=== PATIENT | male | born 1960 | race Caucasian/White ===

== ENCOUNTER 2024-08-03 17:25 | Inpatient (IN) | payer OTHER, SELFPAY ==
[2024-08-03] VITALS (11 sets, daily range): BP systolic 137–173; BP diastolic 75–101; BMI 23.6; BMI 23.3
[2024-08-03 15:53] LABS: % Basophils 0.6 % (0-2); % Eosinophils 1.2 % (0-6); % Immature Granulocytes 0.2 % (0-0.5); % Monocytes 7.5 % (1.7-9.3); % Neutrophils 72.5 % (42.2-75.2); Absolute Basophils 0.1 10^3/uL (0-0.2); Absolute Eosinophils 0.1 10^3/uL (0-0.7); Absolute Lymphocytes 1.5 10^3/uL (1.2-3.4); Absolute Monocytes 0.6 10^3/uL (0.1-0.6); Hematocrit 45.3 % (39.0-52.0); Hemoglobin 15.7 g/dL (13.0-18.0); Mean Corp Hgb Conc. 34.7 g/dL (33.0-37.0); Mean Corpuscular Hgb 31.2 pg (27.0-31.0); Mean Corpuscular Volume 90.1 fL (80.0-94.0); Mean Platelet Volume 9.7 fL (7.4-10.4); Nucleated Red Blood Cells % 0 % (-); Platelet Count 243 10^3/uL (130-400); Red Blood Cell Count 5.03 10^6/uL (4.70-6.10); Red Cell Dist. Width 12.1 % (11.5-14.5); White Blood Cell Count 8.2 10^3/uL (4.8-10.8)
[2024-08-03 16:02] LABS: INR 0.95
--- NOTE | 2024-08-03 16:02 | ED.GENMED ---
History of Present Illness
General
Chief Complaint: Chest Pain
Time Seen by Provider: 08/03/24 15:14
History of Present Illness
History of Present Illness:
64-year-old male with history of high cholesterol and anxiety presenting to the emergency department for midsternal chest tightness. Patient notes symptoms started after about 4 hours of shoveling in the yard. Reports a tightness that has since
resolved. Reports similar symptoms about a week ago, again after traveling. Denies any known cardiac history. Denies any difficulty breathing. Denies nausea, vomiting, abdominal pain. Does note that he feels very anxious. Denies fever. Does
note a chronic cough for the past 3 months. Denies smoking history. Denies additional acute medical complaints.
Past History
Past History
ED Past Medical History: Hypercholesterolemia and Psychiatric (Anxiety)
ED Past Surgical History: None
Social History
Tobacco: Non-smoker
Personal:
Living: with family
Phy Exam
Physical Exam
Physical Exam:
General: Well-appearing, no clinical signs of dehydration, nontoxic and in no acute distress
HEENT: protecting airway
Neck: appears supple
CV: Normal heart rate, regular rhythm
Resp: No accessory muscle use, no increased work of breathing, lungs clear to auscultation bilaterally
Abd: Soft and non-distended, no tenderness to palpation
Extremities: No deformities, no swelling
Neuro: alert, no focal neurologic deficit
: deferred
Rectal: deferred
Psych: Normal affect
Skin: Intact
Scores
Heart Score for Chest Pain Patients
STEMI patient?: Yes
History: Slightly or Non-Suspicious
ECG: Normal
Age: >45 - <65 years
Risk Factors: 1 or 2 Risk Factors
Troponin: </= Normal Limit
Heart Score for Chest Pain Patients: 2
Heart Score Risk: 2.5% MACE over next 6 weeks
Course
Orders/Labs/Results
Orders:
Orders
08/03/24 14:38
Electrocardiogram (*1) Urgent
Reason for Study: Chest Pain
EKG- Treatment ONCE
08/03/24 15:25
Electrocardiogram (*1) Urgent
Reason for Study: Chest Pain
08/03/24 15:37
CR Chest - 2 Views Urgent
Comment:
Reason For Exam: midsternal CP
08/03/24 15:41
Complete Blood Count/With Diff Urgent
Comprehensive Metabolic Panel Urgent
Prothrombin Time Urgent
Troponin I Urgent
08/03/24 16:54
Aspirin Chewable [Low Strength Aspirin] 324 mg PO NOW STA
08/03/24 16:55
PTT Urgent
Comment: Obtain baseline before beginning heparin infusion if not already collected
Heparin 4,000 units IV NOW STA
Heparin Protocol- PTT Orders As Directed
PTT per Heparin protocol: -Obtain CBC and baseline PTT - if not already collected.
-Obtain PTT 6 hours from start of infusion. Then, every 6 hours until 2 consecutive
PTT's are therapeutic. Then, PTT Daily.
-With each rate change, obtain PTT every 6 hours until 2 consecutive PTT's are
therapeutic. Then, PTT Daily.
Notify MD As Directed
Notify physician if: PTT is greater than or equal to 200.
08/03/24 16:56
Nitroglycerin Sublingual [Nitrostat (Sublingual)] 0.4 mg SL [id number] PRN
08/03/24 17:00
Heparin 51177 Units/250 ml 25,000 units in 250 ml IV PER PROTOCOL
Weight to be used for heparin protocol in kilograms (kg):: 70.4
Protocol:: Cardiac Tx/Acute Coronary
PTT Goal Range to be used:: PTT 73 to 111 seconds
Order type:: Initial
INITIAL Infusion Dose (UNITS/KG/hr) & then follow protocol:: 12 units/kg/hr
Infusion Dose in UNITS/hr & then follow protocol (UNITS/hr):: 850
INFUSION RATE in mL/hr & then follow protocol (mL/hr):: 8.5
PTT less than or equal to 64 seconds:: Increase rate by 200 units/hr (+ 2 mL/hr)
PTT 64.1 to 72.9 seconds:: Increase rate by 100 units/hr (+ 1 mL/hr)
PTT 73 to 111 seconds:: Target Range. No change in rate.
PTT 111.1 to 130.9 seconds:: Decrease rate by 100 units/hr (- 1 mL/hr)
PTT 131 to 199.9 seconds:: HOLD for 1 hr. Then decrease rate by 200 units/hr (- 2 mL/hr)
PTT greater than or equal to 200 seconds:: HOLD for 2 hrs & Notify Provider. Then decrease by 200 units/hr (-
2 mL/hr)
Lab follow-up:: Each change, PTT q6h until 2 consecutive are therapeutic. Then PTT
daily.
08/03/24 17:10
Admit/Transfer Patient As Directed
Co-Sign Provider:
Level of Care: Inpatient admission
Assign to:: IVU
Physician / Group: CBC
Diagnosis: NSTEMI
Reason for Hospitalization: Chest pain, NSTEMI
Expected length of stay greater than two midnights?: Yes
ELOS- Estimated Length of Stay in days: 3
I certify the patient meets the requirements for IP care: Yes
08/03/24 17:11
PRN Pain Medication Management As Directed
May give lesser potent ordered pain med per pt: Yes
preference::
Protocol:: Medication orders for pain may be administered in a
manner that supports deferring to patient preference
when the pt is:
- Requesting an ordered lesser potent pain medication.
Least to most potent pain medications are defined
as: acetaminophen < NSAID < tramadol < opioids
(morphine, oxycodone, hydromorphone).
- Requesting a lesser dose of the same medication IF
ORDERED.
- Requesting a less intrusive route of administration
if both routes are prescribed by the provider (PO <
IV).
08/03/24 17:12
Code Status As Directed
Resuscitation Status: Full Code
08/03/24 17:17
Metoprolol [Lopressor] 25 mg PO NOW STA
08/05/24 06:00
Complete Blood Count/No Diff Q2D
Comment: Notify MD if platelet count is <130,000 or decreases by 50% from baseline
08/07/24 06:00
Complete Blood Count/No Diff Q2D
Comment: Notify MD if platelet count is <130,000 or decreases by 50% from baseline
08/09/24 06:00
Complete Blood Count/No Diff Q2D
Comment: Notify MD if platelet count is <130,000 or decreases by 50% from baseline
08/11/24 06:00
Complete Blood Count/No Diff Q2D
Comment: Notify MD if platelet count is <130,000 or decreases by 50% from baseline
08/13/24 06:00
Complete Blood Count/No Diff Q2D
Comment: Notify MD if platelet count is <130,000 or decreases by 50% from baseline
08/15/24 06:00
Complete Blood Count/No Diff Q2D
Comment: Notify MD if platelet count is <130,000 or decreases by 50% from baseline
08/17/24 06:00
Complete Blood Count/No Diff Q2D
Comment: Notify MD if platelet count is <130,000 or decreases by 50% from baseline
08/19/24 06:00
Complete Blood Count/No Diff Q2D
Comment: Notify MD if platelet count is <130,000 or decreases by 50% from baseline
Abnormal Lab Results
08/03/24
15:41
MCH 31.2 H pg
(27.0-31.0)
Lymphocytes % 18.0 L %
(20.5-51.1)
Troponin I 0.370 H* ng/ml
08/03/24 15:41
08/03/24 15:41
Vital Signs
Initial and Last Documented VS:
Initial Vital Signs
Temp Pulse Resp BP Pulse Ox
98.3 F 94 17 173/101 99
08/03/24 14:42 08/03/24 14:42 08/03/24 14:42 08/03/24 14:42 08/03/24 14:42
Last Documented Vital Signs
Temp Pulse Resp BP Pulse Ox
98.3 F 78 15 142/87 97
08/03/24 14:42 08/03/24 16:23 08/03/24 16:23 08/03/24 16:23 08/03/24 15:45
MDM/Problems Addressed
MDM/Problems Addressed:
64-year-old male with history of anxiety presenting for midsternal chest tightness after shoveling. Vital signs on arrival are significant for high blood pressure.
On exam, patient resting comfortably, no acute distress or discomfort. EKG obtained on patient's arrival, sinus rhythm without acute evidence of ischemia. Patients story is relatively concerning, starting after shoveling, however notes that he was
shoveling for about 4 hours before symptoms had started. Then he felt very fatigued. Could be overuse injury as well. Patient relatively low risk for ACS, currently chest pain-free, however given onset with exertion will plan for laboratory
analysis including troponin and chest x-ray imaging. Notes chronic cough for the past 3 months. Will continue to closely monitor.
16:50 - Patient's initial troponin is elevated. Discussed with cardiology. Aspirin administered. Cardiology to see. Patient updated
17:15 -cardiology bedside. Plan for admission under cardiology service for catheterization tomorrow
*EKG
Interpreted by ED Provider?: Yes
EKG Intrepretation Date: 08/03/24
EKG Intrepretation Time: 16:21
Interpretation: normal
Heart Rate: 91
Rate: normal
Rhythm: sinus
[place]: normal axis
Interval: normal interval
QRS Pattern: normal QRS
Ischemia: T-wave inversion
*Critical Care Note
Total Time (30-74mins, 75-104mins- exclusive of procedures): 36
comment:
The high probability of a clinically significant, sudden or life threatening deterioration of the cardiovascular/NSTEMI system(s) required my full and direct attention, intervention and personal management. The aggregate critical care time was 36
minutes. This time is in addition to time spent performing reported procedures but includes the following:
[x] Data Review and interpretation
[x] Patient assessment and monitoring of vital signs
[x] Documentation
[x] Medication orders and management
ED Attending Note
-
Portions of this chart may have been created with voice recognition software.� Occasional wrong word or��sound alike� substitutions may have occurred due to the inherent limitations of voice recognition software.
Discharge Plan
Departure
Date of Disposition: 08/03/24
Time of Disposition: 17:18
Presentation/result/management discussed w/ accepting MD/DO: cardiology
Patient with high blood pressure during this ER visit?: No
Condition: Fair
Prescriptions:
No Action
zinc 15 MG tablet
30 mg PO DAILY
clonazepam 1 MG tablet
1 mg PO BIDPRN PRN (Reason: anxiety)
magnesium hydroxide [Dulcolax (magnesium hydroxide)] 400 MG/5 ML suspension
400 mg PO PRN PRN (Reason: constipation)
ascorbic acid (vitamin C) [Vitamin C] 500 MG tablet
1,000 mg PO DAILY
desvenlafaxine succinate [Pristiq] 50 MG tablet extended release 24 hr
50 mg PO DAILY
cholecalciferol (vitamin D3) 2,000 UNITS tablet
2,000 units PO DAILY
Interventions
Interventions:
*Risk Screen - Suicide Last Done: 08/03/24 14:43
*General Assessment Last Done: 08/03/24 14:43
*Neglect/Abuse Screening Last Done: 08/03/24 14:43
*ED- Fall Risk Assessment Last Done: 08/03/24 15:25
*ED COVID-19 Vaccine History Last Done: 08/03/24 14:43
ED- Cardiac Assessment Last Done: 08/03/24 15:25
Discharge Date and Time
Print Language: WOLOF
[2024-08-03 16:16] LABS: ALT (SGPT) 22 U/L (0-50); AST (SGOT) 27 U/L (17-59); Albumin 4.7 g/dl (3.5-5.0); Alkaline Phosphatase 64 U/L (38-126); Blood Urea Nitrogen 20 mg/dl (9-20); Calcium 9.8 mg/dl (8.4-10.2); Carbon Dioxide 27 mmol/L (22-30); Chloride 106 mmol/L (98-107); Estimated Creatinine Clearance 67 ml/min; Glucose 97 mg/dl (70-99); Potassium 4.1 mmol/L (3.5-5.1); Sodium 140 mmol/L (135-145); Total Bilirubin 0.7 mg/dl (0.2-1.3); Total Protein 7.7 g/dl (6.3-8.2); eGFR > 60.00
--- NOTE | 2024-08-03 17:14 | HPS.HSE ---
Family Physician
-
Family Physician: None
Chief Complaint
-
Chest pain
History of Present Illness
64-year-old gentleman with past medical history of untreated hyperlipidemia due to statin intolerance�'I have tried them all' who presented for evaluation of chest tightness. Last week and when shoveling multiple for several hours he began to have
sudden onset mid substernal chest tightness with an associated fatigue. He stopped and rest for 10 to 15 minutes and it resolved. He does report at that time he went to urgent care and was referred to the ER but instead he went home. He did not
exercise throughout the week because he was a bit nervous. He tried to once again shoveling mulch and had recurrent symptoms prompting him to present to the emergency room for care.
Medical History
Past Medical History
Past Medical History: Reports Hypercholesterolemia (Untreated), Psychiatric (Anxiety) and Other (Reports statin intolerance)
Past Surgical History: Reports None
Social History
Tobacco: Non-smoker
Personal:
Living: With Family
Employment: Retired
Family History
Family History: Early CAD (None) and CAD (None)
Allergies / Home Medications
Allergies reflects when Allergies were last updated in [facility].
Home Medications with original date entered in [facility]
Allergy/Medication List:
Denies taking any medications
Review of Systems
-
A 12 point ROS was completed and negative except as noted: Yes
Respiratory: Reports Cough (dry)
Physical Exam
Vital Signs
Vital Signs
Temp Pulse Resp BP Pulse Ox
98.3 F 78 15 142/87 97
08/03/24 14:42 08/03/24 16:23 08/03/24 16:23 08/03/24 16:23 08/03/24 15:45
Physical Exam
General: Well Developed, Well Nourished and No Apparent Distress
HEENT: NormoCephalic
Respiratory: Clear; No Wheezes, Rales or Rhonchi
Cardiac: S1/S2; No Regular Rhythm, Irregular Rhythm, Murmur, Rub or Gallop
GI: Soft, Non Tender and Non Distended
Musculoskeletal: No No Clubbing or No Cyanosis
Neuro: AO x 3
Laboratory Results
-
08/03/24 15:41
08/03/24 15:
Laboratory Results
PT 13.0 Sec (11.4-14.6) 08/03/24 15:
INR 0.95 08/03/24 15:
Total Bilirubin 0.7 mg/dl (0.2-1.3) 08/03/24 15:
AST 27 U/L (17-59) 08/03/24 15:
ALT 22 U/L (0-50) 08/03/24 15:
Alkaline Phosphatase 64 U/L (38-126) 08/03/24 15:41
Troponin I 0.370 ng/ml H* 08/03/24 15:41
Data Reviewed
-
Diagnostic Radiology: Image Personally Visualized and interpreted (No acute cardiopulmonary process. On my review)
Medical Tests (Nuc Med, Echo, EKG etc): Image Personally Visualized and interpreted (Sinus rhythm, PVC, RSR prime with TWI V1-V4 )
Impression/Plan
-
64-year-old male with hyperlipidemia that is untreated who does not seek care from biomedical engineering professor presented with recurrent chest pain with exertion when shoveling mulch. Had a similar episode 1 week ago and did not go to the emergency room
as recommended by urgent care. Currently chest pain-free.
NSTEMI:
-This represents a threat to life.
-start asa,heparin gtt
-refuses statin
-start bb
-serial trops and ecgs
-currently cp, can start nitro gtt if needed
-check lipid panel
-npo for cath
-echo
HLD: update fasting lipid panel. Discuss zetia and pcsk9 inhibitor once results
Anxiety: chronic
[2024-08-03] MEDS: LOPRESSOR 25 MG PO (17:30)
[2024-08-03] MEDS: LOW STRENGTH ASPIRIN 324 MG PO (17:30)
[2024-08-03] MEDS: HEPARIN 4000 UNITS IV (17:37)
[2024-08-03] MEDS: HEPARIN 25000 UNITS/250 ML IV (17:41)
[2024-08-03 18:12] LABS: APTT 28.6 Sec (23.4-35.0)
--- NOTE | 2024-08-03 22:11 | PTCARENOTE ---
Received pt from ED RN @ approx 1940 to room 2244. Pt AAOx3 and ambulating in room from stretcher. Tele monitor shows SR with HR in the 70's. Heparin gtt infusing @ 850 units/hr. pt oriented to room and educated on NPO status after midnight. Pt
denies any chest pain or SOB at this time. Educated pt to call staff nurse if chest pain/symptoms reoccurs. Call garcia within reach.
[2024-08-04] VITALS (19 sets, daily range): BP systolic 115–146; BP diastolic 68–101
[2024-08-04 00:18] LABS: APTT 51.1 Sec (23.4-35.0)
--- NOTE | 2024-08-04 04:56 | DOWNTIME ---
Addendum entered and electronically signed by Thony Peterson RN 08/04/24 14:24:
Correction: Downtime was 08/04/2024 from 0100 to 08/04/2024 at 0415
Original Note:
There was a [employer] Client [employer]er Downtime on 08/03/2024 from 0100 to 08/04/2024 at 0415. Downtime documentation of patient's care, including medication administrations, has been reconciled in the electronic record per guidelines. Refer to the
patient's paper chart under the miscellaneous tab to see printed paper medication records and downtime forms.
[2024-08-04 06:48] LABS: Hematocrit 47.4 % (39.0-52.0); Hemoglobin 16.3 g/dL (13.0-18.0); Mean Corp Hgb Conc. 34.4 g/dL (33.0-37.0); Mean Corpuscular Hgb 31.5 pg (27.0-31.0); Mean Corpuscular Volume 91.7 fL (80.0-94.0); Mean Platelet Volume 9.4 fL (7.4-10.4); Platelet Count 265 10^3/uL (130-400); Red Blood Cell Count 5.17 10^6/uL (4.70-6.10); Red Cell Dist. Width 12.6 % (11.5-14.5); White Blood Cell Count 6.8 10^3/uL (4.8-10.8)
[2024-08-04 07:15] LABS: Blood Urea Nitrogen 18 mg/dl (9-20); Calcium 9.8 mg/dl (8.4-10.2); Carbon Dioxide 25 mmol/L (22-30); Chloride 108 mmol/L (98-107); Estimated Creatinine Clearance 74 ml/min; Glucose 105 mg/dl (70-99); HDL Cholesterol 63 mg/dl; Potassium 4.4 mmol/L (3.5-5.1); Sodium 142 mmol/L (135-145); Triglyceride 88 mg/dl (10-149); Very Low Density Lipoprotein 17 mg/dl (0-30); eGFR > 60.00
[2024-08-04 07:25] LABS: LDL Cholesterol, Calculated 284 mg/dl; Total Cholesterol 364 mg/dl (50-199)
--- NOTE | 2024-08-04 08:19 | PTCARENOTE ---
Resting in bed with IV heparin infusing at 1150 units/hr, NPO for the catheter finisher and inspector today, denies any chest pain or sob, SR on the monitor.
[2024-08-04] MEDS: LOPRESSOR 25 MG PO ×2 (08:36→20:52)
[2024-08-04] MEDS: ASPIR LOW (ENTERIC COATED) 81 MG PO (08:36)
[2024-08-04] MEDS: FLUSH (NSS) 1 FLUSH IV ×3 (08:36→20:54)
[2024-08-04 09:52] LABS: Glycohemoglobin (HgbA1c) 5.6 % (4.0-5.6)
--- NOTE | 2024-08-04 09:57 | CM ---
Addendum entered by Anel Taveras 08/04/24 15:15:
Met with Mr. Goldsmith to review co-pay information. He is agreeable to the co-pay of $40.00 for 3 month supply.
Addendum entered by Anel Taveras 08/04/24 15:02:
Received consult to check cost of Brilinta 90 mg po bid. Telephone call to [employer],([phone]) to check on co-pay. His co-pay would be $19.35 for a month and $40.00 for 90 days supply. Telephone call to [facility] to check if they have
Brilinta 90 mg in stock. They do not have it in stock but can get it there tomorrow if script received by 6:00 p.m. N.P to send script today.
Addendum entered by Anel Taveras 08/04/24 15:01:
Received consult for cost of Brilinta 90 mg po bid. Telephone call to his insurance, ((
Original Note:
Reviewed chart. Met with Mr. Goldsmith to review discharge plans. He states prior to admission he resides with his spouse in a one story william with one step to enter. He states prior to admission he was independent with ambulation and adls. He states
he does not have any DME in the home. He states he has a prescription plan and uses [facility]. Medical work-up in progress. The discharge plan is to return home with his spouse when medically stable.
--- NOTE | 2024-08-04 13:31 | PTCARENOTE ---
Patient taken to cardiac microbiology lab analyst.
--- NOTE | 2024-08-04 13:34 | W.PN.CD ---
Today's Communication / Plan
-
Cardiac catheterization today.
Impression / Plan
-
Impression/Plan: 64 y/o male with untreated hyperlipidemia due to statin intolerance admitted with NSTEMI.
#NSTEMI
-Acute, threat to life.
-Troponin peaked at 1.96.
-TTE shows normal systolic function, no valvulopathy.
-Continue metoprolol, heparin gtt, aspirin.
-Cardiac catheterization today to clarify coronary anatomy.
#HLD/Statin Intolerance
-Chronic, uncontrolled.
-Total cholesterol = 364, LDL = 284, HDL = 63, Triglycerides = 88.
-Intolerant of statins.
-He will need PCSK9i at discharge. Case management consult.
#PPx
-SCD's for DVT/VTE.
-No role for PPI.
#Dispo
-IVU status.
-Full code.
-Cath today.
Subjective/Interval History:
No acute events.
BP is marginally uncontrolled.
DATA:
TTE, 08/04/2024:
CONCLUSIONS
Normal biventricular size and systolic function without regional wall motion
abnormality.
No significant valvular disease.
No prior study available for comparison.
Physical Exam
Vital Signs/Labs
Vital Signs
Temp Pulse Resp BP Pulse Ox
36.8 C 66 16 133/82 96
08/04/24 11:10 08/04/24 11:10 08/04/24 11:10 08/04/24 11:10 08/04/24 11:10
08/03/24 08/04/24 08/05/24
11:59 11:59 11:59
Actual Weight 69.4 kg
08/04/24 06:37
08/04/24 06:37
PT 13.0 Sec (11.4-14.6) 08/03/24 15:41
INR 0.95 08/03/24 15:41
APTT Cancelled 08/04/24 13:10
Triglycerides 88 mg/dl (10-149) 08/04/24 06:37
LDL Cholesterol, Calc 284 mg/dl 08/04/24 06:37
VLDL Cholesterol, Calc 17 mg/dl (0-30) 08/04/24 06:37
HDL Cholesterol 63 mg/dl 08/04/24 06:37
LAB Results
08/03/24 08/03/24 08/03/24
15:41 20:20 23:53
Troponin I 0.370 H* 1.530 H* D 1.960 H* D
08/04/24 08/04/24
01:41 06:37
Troponin I Cancelled 1.520 H*
Physical Exam
Constitutional: No acute distress and Comfortable
EENT: Anicteric and Moist mucous membranes
Cardiovascular: Rhythm & rate is regular, Pedal edema is absent, JVD pressure is normal, S1S2 is normal and Murmur/rub/gallop absent
Respiratory: Respiratory effort normal, Lungs clear to auscul., Wheeze Absent, Crackles Absent and Rhonchi Absent
GI: Soft, Distention absent, Flat, Non tender and Normal bowel sounds
Neuro/Psych: AO x 3
Data Reviewed
-
Date of Service: August 04, 2024
Medical Decision Making: Reviewed Test Results, Independent Historian Assessment and Test Interpretation
EKG: Tracing Personally Visualized and interpreted and Report Reviewed by me
Echo: Report Reviewed by me
X-Ray/CT/US/MRI/NUC/PET: Image Personally Visualized and interpreted and Report Reviewed by me
Labs: Labs Reviewed by me
Old Records: Reviewed
[2024-08-04 14:11] LABS: ACT-LR - POC 374 Seconds (116-155)
--- NOTE | 2024-08-04 15:02 | PTCARENOTE ---
Patient returned from the labor relations supervisor after PCI to the mid LAD via R radial artery. Radial band in place on the right wrist, with pulse ox of 98%, no signs of bleeding or hematoma noted. Patient denies any chest pain, appears relieved that procedure is
finished and states he 'feels great'. Monitoring VS, call garcia in reach, patient ordering a meal, post EKG completed.
--- NOTE | 2024-08-04 16:48 | ITS.CL.ANGIO ---
[facility] [employer] - Angioplasty
Angioplasty
Procedure Report:
CARDIAC CATHETERIZATION REPORT
Date of Procedure: 08/04/2024
Referring: Cas Uribe M.D.
INDICATION: Non-ST elevation myocardial infarction.
PROCEDURE:
1. Left heart catheterization.
2. Coronary angiography.
3. Successful IVUS guided PCI of the mid LAD.
A total of 54 minutes of procedural/moderate sedation was utilized. An independent medical billing specialist was present to assist with and help manage the patient's level of consciousness and physiologic status.
ACCESS:
1. 6 [place] right radial artery using a modified Seldinger technique.
CATHETERS:
1. 5 [place] JR4.
2. 5 [place] JL 3.5.
3. 6 [place] EBU 4.0 guiding catheter.
HEMODYNAMIC DATA
Weight (kg): 69.4
AO (s/d/x, mmHg): 128/72/94
LV (s/x mmHg): 128/12
LEFT VENTRICULOGRAPHY: Not performed.
CORONARY ANGIOGRAPHY
Dominance: Right.
Left Main: Normal size, bifurcating vessel. There is no coronary artery disease.
LAD: Normal size vessel giving rise to 3 diagonals. There is a hazy, 80% lesion spanning the entire mid LAD, immediately distal to the first diagonal with an additional 70% lesion immediately distal to the second diagonal.
Ramus: Congenitally absent.
Circumflex: Large size, nondominant vessel that is essentially a single large obtuse marginal. There are minor luminal irregularities.
RCA: Normal size, dominant vessel with a significant posterolateral arcade. There is a 30-40% lesion in the proximal vessel.
INTERVENTION(S)
1. Intravascular ultrasound.
2. Successful PCI of the 80% and 70% mid LAD lesions (Medtronic G[place] 3.5 x 38 BOZENA, postdilated with a 3.5 NC balloon throughout and a 4.0 x 15 NC balloon in the proximal margin) with reduction in stenosis to 0%, maintaining JOLEEN-3 flow.
Narrative:
The decision was made to proceed with percutaneous coronary intervention. The diagnostic catheter was removed over a wire and a 6Fr EBU 4.0 guiding catheter was advanced to the aortic root and seated in the left main coronary artery. Additional
heparin was given and a Power Turn Flex wire was advanced into the distal LAD. The tandem 80% mid LAD and 70% mid LAD lesions were predilated with a 2.0 x 12 semi-compliant balloon to 12 rock.
The decision was made to perform intracoronary imaging. Nitroglycerin 150 mcg was given intracoronary. An IVUS catheter was advanced through the guiding catheter and into the ostium of the artery. Ring down was performed once the imaging crystal
was no longer inside of the guiding catheter. The IVUS catheter was advanced into the mid LAD, beyond the 70% lesion. Intravascular ultrasound was performed in a retrograde fashion using a slow pullback. Intracoronary imaging demonstrated severe,
atherosclerotic disease within the mid LAD without significant calcification. Vessel measurements were obtained.
The IVUS catheter was removed and a Medtronic [place] 3.5 x 38 drug-eluting stent was advanced. The stent was deployed at 12 atmospheres. The stent balloon was removed. A 3.5 x 20 noncompliant balloon was advanced into the stent and the stent
was postdilated to 15 atmospheres in the distal aspect and 16 rock in the proximal margin. The noncompliant balloon was withdrawn and a 4.0 x 15 noncompliant balloon was advanced. The proximal margin of the stent was postdilated to 12 rock. The
noncompliant balloon was withdrawn.
IVUS was repeated, demonstrating excellent stent expansion and apposition throughout the entire stented segment. Nitroglycerin 100 mcg intracoronary was given. The IVUS catheter was withdrawn.
Angiography was performed in orthogonal views, confirming good stent expansion and an excellent angiographic result. The coronary wire was withdrawn and the guide was disengaged from the artery. The catheter was removed over a standard J-wire.
Closure Device: Vascular band.
Radiation (mGy): 581.03
DAP (cm2.Gy): 47.9892
Fluoroscopy time (minutes): 11.6
CONCLUSIONS
1. Right dominant circulation with a 30-40% lesion in the proximal RCA and a culprit, 80% lesion spanning the entire mid LAD, followed by a 70% lesion in the mid LAD after the second diagonal, status post successful IVUS guided PCI (Medtronic [place] 3.5 x 38 BOZENA, postdilated with a 3.5 NC balloon throughout and a 4.0 x 15 NC balloon in the proximal margin) with reduction in stenosis to 0%, maintaining JOLEEN-3 flow.
2. Normal filling pressures (LVEDP = 12 mmHg at 69.4 kg).
RECOMMENDATIONS:
1. Expectant management after cardiac catheterization via right radial approach.
2. Limited weight bearing on the right wrist for one week.
3. Dual antiplatelet therapy with aspirin and ticagrelor for at least 12 months, followed by aspirin indefinitely.
4. OMT/GDMT as hemodynamics will tolerate.
5. Aggressive secondary prevention. Patient has a history of statin intolerance and may benefit from PCSK9 inhibitor initiation at discharge.
6. Transthoracic echocardiogram shows normal LV function.
7. Referral to cardiac rehab.
Copy to: Cas Uribe M.D., Duane Sher D.O.
Rogerio Sheridan DO, FACC, FACP
--- NOTE | 2024-08-04 17:00 | PTCARENOTE ---
Assumed care of pt, monitor showing SR. Right radial band intact, no bleeding, no hematoma noted. +CMS to fingers. Ambulatory in room, instructed on activity restrictions. Call garcia in reach.
--- NOTE | 2024-08-04 18:55 | PTCARENOTE ---
Pt declined taking lipitor this evening d/t intolerance to statins, Dr. Sheridan made aware.
[2024-08-04] MEDS: BRILINTA 90 MG PO (20:52)
--- NOTE | 2024-08-04 21:35 | PTCARENOTE ---
Received pt at change of shift resting in bed. SR on the monitor, HR 60-70's. pt denies any chest pain or SOB. Right radial site C.D.I. no bleeding or hematoma noted at this time. Educated pt on activity restrictions. pt ambulating in room ad lorene.
Call garcia within reach.
[2024-08-05 04:33] VITALS: BP 135/90
[2024-08-05 04:58] LABS: Hematocrit 44.8 % (39.0-52.0); Hemoglobin 15.4 g/dL (13.0-18.0); Mean Corp Hgb Conc. 34.4 g/dL (33.0-37.0); Mean Corpuscular Hgb 31.8 pg (27.0-31.0); Mean Corpuscular Volume 92.4 fL (80.0-94.0); Mean Platelet Volume 9.8 fL (7.4-10.4); Platelet Count 246 10^3/uL (130-400); Red Blood Cell Count 4.85 10^6/uL (4.70-6.10); Red Cell Dist. Width 12.5 % (11.5-14.5)
[2024-08-05 05:20] LABS: Blood Urea Nitrogen 18 mg/dl (9-20); Calcium 9.5 mg/dl (8.4-10.2); Carbon Dioxide 23 mmol/L (22-30); Chloride 110 mmol/L (98-107); Estimated Creatinine Clearance 74 ml/min; Glucose 108 mg/dl (70-99); Potassium 4.4 mmol/L (3.5-5.1); Sodium 139 mmol/L (135-145); eGFR > 60.00
[2024-08-05 07:43] VITALS: BP 127/82
[2024-08-05] MEDS: BRILINTA 90 MG PO (08:23)
[2024-08-05] MEDS: ASPIR LOW (ENTERIC COATED) 81 MG PO (08:24)
[2024-08-05] MEDS: TOPROL XL 25 MG PO (08:24)
[2024-08-05] MEDS: COZAAR 25 MG PO (08:25)
[2024-08-05] MEDS: FLUSH (NSS) 1 FLUSH IV (08:26)
--- NOTE | 2024-08-05 08:37 | PTCARENOTE ---
Patient received oob and ambulating in the room this morning. Denies any chest pain or sob. Right wrist dressing is dry and intact with a strong radial pulse and no signs of hematoma. Patient is worried about inability to tolerate statins and would
like to know more about alternatives. Encouraged to be oob and ambulate in the halls.
--- NOTE | 2024-08-05 09:10 | W.PN.CD ---
Today's Communication / Plan
-
Start ezetimibe 10 mg daily.
Case management consult for evolocumab 140 mg q14 days as an outpatient.
Discharge planning, likely today.
Impression / Plan
-
Impression/Plan: 64 y/o male with untreated hyperlipidemia due to statin intolerance admitted with NSTEMI.
#NSTEMI
-Acute, threat to life.
-Troponin peaked at 1.96.
-TTE shows normal systolic function, no valvulopathy.
-Continue metoprolol, heparin gtt, aspirin.
-Cardiac catheterization showed culprit 80% mLAD (hazy), s/p IVUS guided PCI ([employer]tronic Gagan [place] 3.5 x 38 BOZENA, post dilated with a 3.5 NCB throughout, 4.0 NCB in the proximal margin).
-DAPT with aspirin and ticagrelor for at least 12 months, followed by aspirin indefinitely.
-Tolerating metoprolol.
-Intolerant of statins.
#HLD/Statin Intolerance
-Chronic, uncontrolled.
-Total cholesterol = 364, LDL = 284, HDL = 63, Triglycerides = 88.
-Intolerant of statins.
-Start ezetimibe. Goal LDL < 55.
-He will need PCSK9i at discharge. Case management consult for evolocumab 140 mg q14 days.
#PPx
-SCD's for DVT/VTE.
-No role for PPI.
#Dispo
-IVU status.
-Full code.
-Likely discharge this afternoon.
Subjective/Interval History:
Cath showed culprit mid-LAD lesion (80% and hazy), s/p PCI.
Tolerated procedure well.
No events overnight.
No subjective complaints.
DATA:
TTE, 08/04/2024:
CONCLUSIONS
Normal biventricular size and systolic function without regional wall motion
abnormality.
No significant valvular disease.
No prior study available for comparison.
Cardiac Catheterization/PCI, 08/04/2024:
CONCLUSIONS
1. Right dominant circulation with a 30-40% lesion in the proximal RCA and a culprit, 80% lesion spanning the entire mid LAD, followed by a 70% lesion in the mid LAD after the second diagonal, status post successful IVUS guided PCI ([employer]tronic Gagan
[place] 3.5 x 38 BOZENA, postdilated with a 3.5 NC balloon throughout and a 4.0 x 15 NC balloon in the proximal margin) with reduction in stenosis to 0%, maintaining JOLEEN-3 flow.
2. Normal filling pressures (LVEDP = 12 mmHg at 69.4 kg).
Physical Exam
Vital Signs/Labs
Vital Signs
Temp Pulse Resp BP Pulse Ox
36.6 C 58 16 127/82 98
08/05/24 07:43 08/05/24 07:43 08/05/24 07:43 08/05/24 07:43 08/05/24 07:43
08/03/24 08/04/24 08/05/24
11:59 11:59 11:59
Actual Weight 69.4 kg
08/05/24 04:45
08/05/24 04:45
PT 13.0 Sec (11.4-14.6) 08/03/24 15:41
INR 0.95 08/03/24 15:41
APTT Cancelled 08/04/24 13:10
Triglycerides 88 mg/dl (10-149) 08/04/24 06:37
LDL Cholesterol, Calc 284 mg/dl 08/04/24 06:37
VLDL Cholesterol, Calc 17 mg/dl (0-30) 08/04/24 06:37
HDL Cholesterol 63 mg/dl 08/04/24 06:37
LAB Results
08/03/24 08/03/24 08/03/24
15:41 20:20 23:53
Troponin I 0.370 H* 1.530 H* D 1.960 H* D
08/04/24 08/04/24
01:41 06:37
Troponin I Cancelled 1.520 H*
Physical Exam
Constitutional: No acute distress and Comfortable
EENT: Anicteric and Moist mucous membranes
Cardiovascular: Rhythm & rate is regular, Pedal edema is absent, JVD pressure is normal, S1S2 is normal and Murmur/rub/gallop absent
Respiratory: Respiratory effort normal, Lungs clear to auscul., Wheeze Absent, Crackles Absent and Rhonchi Absent
GI: Soft, Distention absent, Flat, Non tender and Normal bowel sounds
Neuro/Psych: AO x 3
Other: Cath Site (Right radial access site is C/D/I.)
Data Reviewed
-
Date of Service: August 05, 2024
Medical Decision Making: Reviewed Test Results, Independent Historian Assessment, Test Interpretation and Review of Case with other Provider
EKG: Tracing Personally Visualized and interpreted and Report Reviewed by me
Echo: Tracing Personally Visualized and interpreted and Report Reviewed by me
X-Ray/CT/US/MRI/NUC/PET: Image Personally Visualized and interpreted and Report Reviewed by me
Medical Tests (PFT, Pathology etc): Image Personally Visualized and interpreted and Report Reviewed by me
Labs: Labs Reviewed by me
Old Records: Reviewed
[2024-08-05] MEDS: ZETIA 10 MG PO (09:46)
[2024-08-05 11:12] VITALS: BP 151/83
--- NOTE | 2024-08-05 11:12 | CM ---
constance keys with pts perscript plan- his coapy is $20 it is the prefered med but rrquires a prior auth- [phone]. Dr Sheridan aware
--- NOTE | 2024-08-05 13:58 | PTCARENOTE ---
Reviewed discharge instructions including new medications and follow up appointments with the patient and he states his understanding. Patient plans on having his TAMIKA who is a nurse assist him with the injection of repatha and I gave him a handout
with the instructions and injection technique. Patient discharged home with his son.
--- NOTE | 2024-08-05 16:45 | W.DS.TRANS ---
DC Summary - [employer]
-
Discharge Instructions:
Discharge Diagnosis/Procedures NSTEMI, s/p angioplasty and stent to Left
Anterior Descending artery
Diet Low Cholesterol
Activity No strenuous activity
Additional Activity For 1 week
Driving Restrictions No driving for 24 hours
Other Services Cardiac Rehab
Instructions:
Stand-Alone Forms: DC Instructions- Cath/EP Lab
Changes to Home Medications: Yes
Discharge Medications:
DC Medications w/original date entered in [employer]
Cayenne Pepper 2 cap PO DAILY Supplement 08/03/24
cholecalciferol (vitamin D3) 50 mcg PO DAILY Supplement 08/03/24
oregano oil 1 cap PO DAILY Supplement 08/03/24
selenium 1 cap PO DAILY Supplement 08/03/24
aspirin 81 mg tablet,delayed release 81 mg PO DAILY #0 tabs 08/04/24
ticagrelor 90 mg tablet (Brilinta) 90 mg PO BID #180 tabs 08/04/24
evolocumab 140 mg/mL subcutaneous pen injector (Repatha SureClick) 140 mg SC Q2W #2 mL 08/05/24
ezetimibe 10 mg tablet 10 mg PO DAILY #90 tabs 08/05/24
losartan 25 mg tablet 25 mg PO DAILY #90 tabs 08/05/24
metoprolol succinate 25 mg tablet,extended release 24 hr 25 mg PO DAILY #90 tabs 08/05/24
Home Medication Changes
new to everything but supplements
Pending Results: No
== END 2024-08-05 13:35 | disposition home or self-care (01) | DRG 322 ==
LOC: IVU 17:25
PROVIDERS: Internal Medicine Cardiovascular Disease; Nurse Practitioner; Nurse Practitioner Gerontology; ADMITTING PHYSICIAN Internal Medicine Cardiovascular Disease; EMERGENCY PHYSICIAN Student in an Organized Health Care Education/Training Program; FAMILY PHYSICIAN Family Medicine
PROC: B2111ZZ Fluoroscopy of Multiple Coronary Arteries using Low Osmolar Contrast (ICD-10-PCS; 2024-08-04)
PROC: B240ZZ3 Ultrasonography of Single Coronary Artery, Intravascular (ICD-10-PCS; 2024-08-04)
PROC: 4A023N7 Measurement of Cardiac Sampling and Pressure, Left Heart, Percutaneous Approach (ICD-10-PCS; 2024-08-04)
PROC: 027034Z Dilation of Coronary Artery, One Artery with Drug-eluting Intraluminal Device, Percutaneous Approach (ICD-10-PCS; 2024-08-04)
DX: I21.4 Non-ST elevation (NSTEMI) myocardial infarction (principal); E78.00 Pure hypercholesterolemia, unspecified; F41.9 Anxiety disorder, unspecified; R05.3 Chronic cough
CPT/HCPCS: 71046; 80048; 80053; 80061; 83036; 84484; 85025; 85027; 85347; 85610; 85730; 92978; 93005; 93306; 93458; 96365; 96366; 99291; C1725; C1753; C1874; C1887; C1894; C9600; Q9950; Q9967

== ENCOUNTER 2024-08-12 11:00 | Outpatient (RCR) | payer OTHER, SELFPAY | END 2024-08-12 23:59 | disposition home or self-care (01) | LOC: CRHB 11:00 | PROVIDERS: ATTENDING PHYSICIAN Internal Medicine Cardiovascular Disease; FAMILY PHYSICIAN Family Medicine | DX: I25.10 Atherosclerotic heart disease of native coronary artery without angina pectoris (principal); Z95.5 Presence of coronary angioplasty implant and graft; I25.2 Old myocardial infarction | CPT/HCPCS: G0422; G0423 ==

== ENCOUNTER → 2024-11-02 08:26 | Outpatient (REF) | payer OTHER, SELFPAY ==
[2024-11-02 11:02] LABS: ALT (SGPT) 24 U/L (0-50); AST (SGOT) 24 U/L (17-59); HDL Cholesterol 60 mg/dl; LDL Cholesterol, Calculated 84 mg/dl; Very Low Density Lipoprotein 14 mg/dl (0-30)
== END ==
LOC: REG 08:26
PROVIDERS: ATTENDING PHYSICIAN Nurse Practitioner; FAMILY PHYSICIAN Family Medicine
DX: E78.2 Mixed hyperlipidemia (principal); Z87.438 Personal history of other diseases of male genital organs; N20.0 Calculus of kidney
CPT/HCPCS: 36415; 80061; 84153; 84154; 84450; 84460